=== PATIENT | male | born 1990 | race African-American/Black ===

== ENCOUNTER 2021-11-30 23:48 | Emergency (ER) | payer OTHER, BC ==
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
[2021-12-01] MEDS ORDERED: ONDANSETRON 4 MG/2 ML INJ IV ONE (01:33)
[2021-12-01] MEDS ORDERED: MORPHINE 4 MG/1 ML INJ IV ONE (01:33)
[2021-12-01 01:56] LABS: Basophils # (Auto) 0.1 K/mm3 (0.0-0.1); Basophils % (Auto) 0.5 % (0.0-1.8); Eosinophils # (Auto) 0.1 K/mm3 (0.0-0.4); Eosinophils % (Auto) 0.9 % (0.0-4.3); Hematocrit 43.2 % (35.5-45.6); Hemoglobin 13.5 gm/dl (11.8-15.2); Lymphocytes % (Auto) 18.7 % (13.4-35.0); Mean Corpuscular HGB Conc 31 % (32-34); Mean Corpuscular Volume 83 fl (84-94); Monocytes # (Auto) 0.8 K/mm3 (0.0-0.8); Monocytes % (Auto) 7.2 % (0.0-7.3); Platelet Count 192 K/mm3 (140-440); Red Blood Count 5.18 M/mm3 (3.65-5.03); Red Cell Distribution Width 13.8 % (13.2-15.2)
[2021-12-01 02:17] LABS: Alanine Aminotransferase 46 units/L (7-56); Albumin 4.4 g/dL (3.9-5); BUN/Creatinine Ratio 16; Blood Urea Nitrogen 14 mg/dL (9-20); Calcium 8.9 mg/dL (8.4-10.2); Hemolysis Index 12
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
[2021-12-01 04:14] VITALS: BP 108/74
--- NOTE | 2021-12-04 19:42 | Electrocardiograph Report ---
[facility] Test Date: 2021-12-01 Test Time: 02:02:50 Pat Name: CLAUDIA GUTIERREZ Department: Room: Gender: M [employer] Operator: YAJAIRA : 1990 Requested By: AFSANEH CHRISTIANSEN Order Number: [id number] Reading MD: Bing Padron Measurements Intervals Mcintosh Rate: 69 P: 48 NC: 161 QRS: 85 QRSD: 90 T: 52 QT: 396 QTc: 424 Interpretive Statements Sinus rhythm No previous ECG available for comparison Electronically Signed On 12-04-2021 19:41:51 EDT by Bing Padron
== END 2021-12-01 05:30 | disposition home or self-care (01) ==
LOC: ED 23:48
DX: S46.911A Strain of unspecified muscle, fascia and tendon at shoulder and upper arm level, right arm, initial encounter (principal); S13.4XXA Sprain of ligaments of cervical spine, initial encounter; J45.909 Unspecified asthma, uncomplicated; V89.2XXA Person injured in unspecified motor-vehicle accident, traffic, initial encounter; Y93.89 Activity, other specified; Y92.89 Other specified places as the place of occurrence of the external cause; Y99.8 Other external cause status
CPT/HCPCS: 36415; 70450; 71260; 72125; 72128; 72131; 73030; 74177; 80053; 84484; 85025; 93005; 99284; Q9967